=== PATIENT | female | born 1955 | race Caucasian/White ===

== ENCOUNTER → 2017-08-27 | Outpatient (CLI) | payer MEDICARE ==
[~2017-08-27] MED LIST: ASPI-614 PO; ATOR-2 PO; CALC-126 PO; CHOL2000 PO; CLON-364 PO; FOLI-17 PO; GLUC1CAP13 PO; HYDR1TAB14 PO; LAMO200T3 PO; LOSA100T6 PO; METH20TA PO; METO25TA35 PO; NAPR375T PO; PANT40TA3 PO; PARO20TA98 PO; RESPERIDOL PO; VIT100TA PO; VITA100020 PO; ZOLP10TA PO
== END | disposition home or self-care (01) ==
LOC: CFH 10:37
PROVIDERS: ATTEND Obstetrics & Gynecology Gynecology
DX: Z12.31 Encounter for screening mammogram for malignant neoplasm of breast (principal)
CPT/HCPCS: 77067

== ENCOUNTER 2019-04-12 05:50 | Day surgery (SDC) | payer MEDICARE, OTHER ==
[~2019-04-12] VITALS: Ht 167.6 cm; Wt 97.0 kg
[~2019-04-12 05:50] MED LIST changes: -CLON-364 PO; +CLON0.5T11 PO; -HYDR1TAB14 PO; +HYDR1TAB15 PO; +LOSA100T14 PO; -LOSA100T6 PO
[2019-04-12] MEDS ORDERED: LACTATED RINGERS 1,000 ML IV SCH (06:46)
[2019-04-12] MEDS ORDERED: PIPERACILLIN/TAZO/PMX 3.375GM 50 ML IV STA (06:53)
[2019-04-12] MEDS ORDERED: CHLORHEXIDINE 15 ML UDC ONE (06:54)
[2019-04-12 07:00] VITALS: BP 154/106
[2019-04-12] MEDS ORDERED: PIPERACILLIN/TAZO/PMX 3.375GM 50 ML IV ONE (07:41)
[2019-04-12] MEDS ORDERED: hydrALAzine 20 MG/ML, 1ML ONE (07:41)
[2019-04-12] MEDS ORDERED: FENTANYL PF 100 MCG/2ML ONE (07:41)
[2019-04-12] MEDS ORDERED: DEXAMETHASONE 4 MG/ML, 1ML ONE (07:58)
[2019-04-12] MEDS ORDERED: PROPOFOL 10 MG/ML, 20ML ONE (08:00)
[2019-04-12] MEDS ORDERED: SUCCINYLCHOLINE 20 MG/ML, 10ML ONE (08:00)
[2019-04-12] MEDS ORDERED: ROCURONIUM 10MG/ML,5ML ONE (08:00)
[2019-04-12] MEDS ORDERED: ONDANSETRON 2MG/ML, 2ML ONE (08:00)
[2019-04-12] MEDS ORDERED: ALBUTEROL SULFATE 2.5 MG/3 ML NPPB PRN (09:00)
[2019-04-12] MEDS ORDERED: OXYcodone 5 MG/5 ML ORAL.SOL UDC PO PRN (09:00)
[2019-04-12] MEDS ORDERED: hydrALAzine 20 MG/ML, 1ML IV PRN (09:00)
[2019-04-12] MEDS ORDERED: MIDAZOLAM 1 MG/ML, 2ML IV PRN (09:00)
[2019-04-12] MEDS ORDERED: ONDANSETRON 2MG/ML, 2ML IV PRN (09:00)
[2019-04-12] MEDS ORDERED: LABETALOL 5MG/ML, 20ML IV PRN (09:00)
[2019-04-12] MEDS ORDERED: PROMETHAZINE 25 MG/ML, 1ML IV PRN (09:00)
[2019-04-12] MEDS ORDERED: DIAZEPAM 5 MG/ML, 2ML IVPush PRN (09:00)
[2019-04-12] MEDS ORDERED: ONDANSETRON ODT 8 MG PO PRN (09:00)
[2019-04-12] MEDS ORDERED: HALOPERIDOL 5 MG/ML IV PRN (09:00)
[2019-04-12] MEDS ORDERED: MEPERIDINE/PF 25MG/ML,1ML IVPush PRN (09:00)
[2019-04-12] MEDS ORDERED: HYDROmorphone 2 MG/ML, 1ML IVPush PRN (09:00)
[2019-04-12] MEDS ORDERED: PROMETHAZINE 12.5 MG SUPP PR PRN (09:00)
[2019-04-12] MEDS ORDERED: FENTANYL PF 100 MCG/2ML IV PRN (09:00)
[2019-04-12] MEDS ORDERED: EPHEDRINE 50 MG/ML, 1ML IVPush PRN (09:00)
== END 2019-04-12 10:00 | disposition home or self-care (01) ==
LOC: OUT 05:50
PROVIDERS: ATTEND Internal Medicine Gastroenterology
DX: R19.09 Other intra-abdominal and pelvic swelling, mass and lump (principal); C25.0 Malignant neoplasm of head of pancreas; K83.1 Obstruction of bile duct; K29.50 Unspecified chronic gastritis without bleeding; L29.9 Pruritus, unspecified; I10 Essential (primary) hypertension; I25.10 Atherosclerotic heart disease of native coronary artery without angina pectoris; I25.2 Old myocardial infarction; E78.5 Hyperlipidemia, unspecified; K21.9 Gastro-esophageal reflux disease without esophagitis; E55.9 Vitamin D deficiency, unspecified; F31.9 Bipolar disorder, unspecified; M06.9 Rheumatoid arthritis, unspecified; Z79.891 Long term (current) use of opiate analgesic; Z79.899 Other long term (current) drug therapy; Z87.891 Personal history of nicotine dependence; Z88.5 Allergy status to narcotic agent; Z95.5 Presence of coronary angioplasty implant and graft; Z80.51 Family history of malignant neoplasm of kidney
CPT/HCPCS: 43239; 43242; 43274; 74328; 88172; 88173; 88177; 88305; 88307; 93005; C1769; C1876; J0330; J0360; J1100; J2405; J2543; J2704; J3010; J7120

== ENCOUNTER 2019-05-29 09:50 | Day surgery (SDC) | payer MEDICARE, OTHER ==
[~2019-05-29] VITALS: Ht 167.6 cm; Wt 62.3 kg
[2019-05-29] MEDS ORDERED: SODIUM CHLORIDE 0.9% 1,000 ML IV SCH (10:21)
[2019-05-29] MEDS ORDERED: CEFAZOLIN PMX 1GM/50ML 50 ML IV ONE (10:30)
[2019-05-29 10:42] VITALS: BP 117/79
[2019-05-29] MEDS ORDERED: NALOXONE 1 MG/ML, 2ML ONE (10:57)
[2019-05-29] MEDS ORDERED: FLUMAZENIL 0.1 MG/1 ML, 5ML ONE (10:57)
[2019-05-29] MEDS ORDERED: FENTANYL PF 100 MCG/2ML ONE (10:57)
[2019-05-29] MEDS ORDERED: MIDAZOLAM 1 MG/ML, 5ML ONE (10:57)
[2019-05-29] MEDS ORDERED: LIDOCAINE 1%, 20ML ONE (10:58)
== END 2019-05-29 13:35 | disposition home or self-care (01) ==
LOC: OUT 09:50
PROVIDERS: ATTEND Pathology Hematology
DX: C25.9 Malignant neoplasm of pancreas, unspecified (principal); I10 Essential (primary) hypertension; M06.9 Rheumatoid arthritis, unspecified; Z79.899 Other long term (current) drug therapy; Z87.891 Personal history of nicotine dependence; Z95.5 Presence of coronary angioplasty implant and graft
CPT/HCPCS: 36561; 76937; 77001; 99156; 99157; C1788; J0690; J1642; J2250; J3010; J7030; J2310

== ENCOUNTER 2019-06-09 09:41 | Outpatient (CLI) | payer MEDICARE, OTHER ==
[2019-06-09] MEDS ORDERED: ONDA8TAB16 SL (10:21)
[2019-06-09] MEDS ORDERED: CARV6.2512 PO (10:21)
[2019-06-09] MEDS ORDERED: PROC10TA78 PO (10:21)
[2019-06-09] MEDS ORDERED: ADAL40KI IJ (10:21)
[2019-06-09] MEDS ORDERED: HYDR200T72 PO (10:21)
[2019-06-09] MEDS ORDERED: HYDR-36 PO (10:21)
[2019-06-09] MEDS ORDERED: MORP-30 PO (10:21)
[2019-06-09] MEDS ORDERED: AMLO5TAB4 PO (10:21)
== END 2019-06-09 23:59 | disposition home or self-care (01) ==
LOC: STAR 09:41
PROVIDERS: ATTEND Internal Medicine Gastroenterology
DX: Z02.9 Encounter for administrative examinations, unspecified (principal)

== ENCOUNTER 2019-06-15 07:10 | Day surgery (SDC) | payer MEDICARE, OTHER ==
[~2019-06-15] VITALS: Ht 167.6 cm; Wt 62.3 kg
[~2019-06-15 07:10] MED LIST changes: +ADAL40KI IJ; +AMLO5TAB4 PO; +CARV6.2512 PO; +HYDR-36 PO; +HYDR200T72 PO; +MORP-30 PO; +ONDA8TAB16 SL; +PROC10TA78 PO
[2019-06-15] MEDS ORDERED: LACTATED RINGERS 1,000 ML IV SCH (07:21)
[2019-06-15 07:36] VITALS: BP 118/81
[2019-06-15] MEDS ORDERED: PROPOFOL 10 MG/ML, 20ML ONE ×3 (08:49→09:53)
[2019-06-15] MEDS ORDERED: PHENYLEPHRINE 10 MG/ML ONE (09:27)
[2019-06-15] MEDS ORDERED: BUPIVACAINE/PF 0.25% ONE (09:29)
[2019-06-15] MEDS ORDERED: FENTANYL PF 100 MCG/2ML IV PRN (09:30)
[2019-06-15] MEDS ORDERED: MORPHINE SULFATE 4 MG/ML, 1ML IVPush PRN (09:30)
[2019-06-15] MEDS ORDERED: MEPERIDINE/PF 25MG/ML,1ML IVPush PRN (09:30)
[2019-06-15] MEDS ORDERED: HYDROmorphone 2 MG/ML, 1ML IVPush PRN (09:30)
[2019-06-15] MEDS ORDERED: OXYcodone 5 MG/5 ML ORAL.SOL UDC PO PRN (09:30)
[2019-06-15] MEDS ORDERED: ETHYL ALCOHOL 98%, 5 ML ONE (09:31)
== END 2019-06-15 11:15 | disposition home or self-care (01) ==
LOC: OR 07:10
PROVIDERS: ATTEND Internal Medicine Gastroenterology
DX: C25.9 Malignant neoplasm of pancreas, unspecified (principal); K44.9 Diaphragmatic hernia without obstruction or gangrene; I10 Essential (primary) hypertension; E78.5 Hyperlipidemia, unspecified; I25.10 Atherosclerotic heart disease of native coronary artery without angina pectoris; I25.2 Old myocardial infarction; M06.9 Rheumatoid arthritis, unspecified; F41.8 Other specified anxiety disorders; Z79.891 Long term (current) use of opiate analgesic; Z79.84 Long term (current) use of oral hypoglycemic drugs; Z79.899 Other long term (current) drug therapy
CPT/HCPCS: 43259; 64680; J2370; J2704; J3490

== ENCOUNTER 2019-07-27 08:56 | Day surgery (SDC) | payer MEDICARE, OTHER ==
[~2019-07-27] VITALS: Ht 167.6 cm; Wt 62.9 kg
[~2019-07-27 08:56] MED LIST changes: +CLON-364 PO; -CLON0.5T11 PO
[2019-07-27] MEDS ORDERED: LACTATED RINGERS 1,000 ML IV SCH (09:48)
[2019-07-27] MEDS ORDERED: FENTANYL PF 250 MCG/5ML ONE (10:12)
[2019-07-27] MEDS ORDERED: MIDAZOLAM 1 MG/ML, 2ML ONE (10:12)
[2019-07-27] MEDS ORDERED: GLYCOPYRROLATE 0.2MG/1ML, 5ML ONE (10:13)
[2019-07-27] MEDS ORDERED: NEOSTIGMINE 1 MG/ML, 10ML ONE (10:13)
[2019-07-27] MEDS ORDERED: CEFAZOLIN 1,000 MG ONE (10:13)
[2019-07-27] MEDS ORDERED: ONDANSETRON 2MG/ML, 2ML ONE (10:13)
[2019-07-27] MEDS ORDERED: PROPOFOL 10 MG/ML, 20ML ONE (10:13)
[2019-07-27] MEDS ORDERED: DEXAMETHASONE 4 MG/ML, 1ML ONE (10:13)
[2019-07-27] MEDS ORDERED: ROCURONIUM 10MG/ML,5ML ONE (10:13)
[2019-07-27 10:15] VITALS: BP 107/74
[2019-07-27] MEDS ORDERED: OXYcodone 5 MG/5 ML ORAL.SOL UDC PO PRN (10:30)
[2019-07-27] MEDS ORDERED: MEPERIDINE/PF 25MG/ML,1ML IVPush PRN (10:30)
[2019-07-27] MEDS ORDERED: PROMETHAZINE 25 MG/ML, 1ML IV PRN (10:30)
[2019-07-27] MEDS ORDERED: HYDROmorphone 1 MG/ML, 1ML INJ IVPush PRN (10:30)
[2019-07-27] MEDS ORDERED: hydrALAzine 20 MG/ML, 1ML IV PRN (10:30)
[2019-07-27] MEDS ORDERED: FENTANYL PF 100 MCG/2ML IV PRN (10:30)
[2019-07-27] MEDS ORDERED: HALOPERIDOL 5 MG/ML IV PRN (10:30)
[2019-07-27] MEDS ORDERED: LABETALOL 5MG/ML, 20ML IV PRN (10:30)
[2019-07-27] MEDS ORDERED: morphine SULFATE 10 MG/ML, 1ML IVPush PRN (10:30)
[2019-07-27] MEDS ORDERED: SUGAMMADEX 200 MG/2 ML IVPush ONE (10:50)
[2019-07-27] MEDS ORDERED: OMNIPAQUE 350 MG/ML, 50 ML BOTTLE ONE (11:08)
== END 2019-07-27 13:20 | disposition home or self-care (01) ==
LOC: OUT 08:56
PROVIDERS: ATTEND Internal Medicine Gastroenterology
DX: C25.9 Malignant neoplasm of pancreas, unspecified (principal); K80.51 Calculus of bile duct without cholangitis or cholecystitis with obstruction; I25.2 Old myocardial infarction; I10 Essential (primary) hypertension; Z86.14 Personal history of Methicillin resistant Staphylococcus aureus infection
CPT/HCPCS: 43264; 43274; 43278; 74328; C1769; C1876; J0690; J1100; J2250; J2405; J2704; J2710; J3010; J7120; Q9967

== ENCOUNTER → 2019-08-25 | Outpatient (CLI) | payer MEDICARE, OTHER ==
[~2019-08-25] MED LIST changes: +OMNIPAQUE 350 MG/ML, 100ML BOTTLE ONE
== END | disposition home or self-care (01) ==
LOC: CFH 10:17
PROVIDERS: ATTEND Pathology Hematology
DX: C25.0 Malignant neoplasm of head of pancreas (principal); K76.0 Fatty (change of) liver, not elsewhere classified; I25.10 Atherosclerotic heart disease of native coronary artery without angina pectoris; M51.34 Other intervertebral disc degeneration, thoracic region; K76.89 Other specified diseases of liver; N28.1 Cyst of kidney, acquired; N20.0 Calculus of kidney; I70.0 Atherosclerosis of aorta; R59.9 Enlarged lymph nodes, unspecified; R59.0 Localized enlarged lymph nodes; Z90.710 Acquired absence of both cervix and uterus
CPT/HCPCS: 71260; 74177; Q9967